=== PATIENT | male | born 1960 | race Caucasian/White ===

== ENCOUNTER 2017-06-08 09:01 | Day surgery (SDC) | payer MEDICAID ==
[~2017-06-08] VITALS: Ht 167.6 cm; Wt 79.8 kg
[~2017-06-08 09:01] MED LIST: PANT40TA4 PO; PROP10TA10 PO; VITAMIN B 1 PO
[2017-06-08 10:04] LABS: HEMATOCRIT 39.5 % (42.0-52.0); HEMOGLOBIN 13.5 g/dL (14.0-18.0)
[2017-06-08] MEDS ORDERED: LACTATED RINGERS 1,000 ML IV SCH (10:15)
[2017-06-08] MEDS ORDERED: SIMETHICONE 40 MG/0.6 ML 30ML ONE (11:21)
[2017-06-08] MEDS ORDERED: PROPOFOL 200MG/20ML VIAL IV ONE (11:23)
[2017-06-08] MEDS ORDERED: ONDANSETRON HCL 4MG/2ML VIAL ONE (11:38)
[2017-06-08] MEDS ORDERED: LIDOCAINE HCL/PF 1% 10 MG/ML 5ML VIAL ONE (11:38)
[2017-06-08] MEDS ORDERED: DEXAMETHASONE 4MG/ML 1ML VIAL ONE (11:38)
[2017-06-08] MEDS ORDERED: ONDANSETRON HCL 4MG/2ML VIAL IV PRN ×2 (11:45)
[2017-06-08] MEDS ORDERED: HYDROMORPHONE HCL/PF 2MG/ML CPJ IV PRN ×2 (11:45)
[2017-06-08] MEDS ORDERED: LABETALOL 5MG/ML SYR 20 MG/4 ML SYRINGE IV PRN ×2 (11:45)
[2017-06-08] MEDS ORDERED: MEPERIDINE HCL/PF 25MG/ML CPJ IV PRN ×2 (11:45)
[2017-06-08] MEDS ORDERED: FOLI-43 PO (12:13)
[2017-06-08] MEDS ORDERED: THIA100T75 PO (12:13)
[2017-06-08] MEDS ORDERED: OMEP40CA34 PO (12:13)
[2017-06-08] MEDS ORDERED: FERR325T6 PO (12:13)
== END 2017-06-08 13:00 | disposition home or self-care (01) ==
LOC: OR 09:01
PROVIDERS: ATTEND Internal Medicine Gastroenterology
DX: K31.89 Other diseases of stomach and duodenum (principal); K76.6 Portal hypertension; K70.30 Alcoholic cirrhosis of liver without ascites; K44.9 Diaphragmatic hernia without obstruction or gangrene; F10.10 Alcohol abuse, uncomplicated; K21.9 Gastro-esophageal reflux disease without esophagitis; D64.89 Other specified anemias; Z79.899 Other long term (current) drug therapy
CPT/HCPCS: 36415; 43235; 85014; 85018; J1100; J2405; J3490; J7120; J2704

== ENCOUNTER 2022-06-17 19:16 | Emergency (ER) | payer MEDICAID, OTHER ==
[~2022-06-17] VITALS: Ht 167.6 cm; Wt 78.6 kg
[~2022-06-17 19:16] MED LIST changes: +FERR325T6 PO; +FOLI-43 PO; +OMEP40CA20 PO; -PANT40TA4 PO; +THIA100T75 PO; -VITAMIN B 1 PO
[2022-06-17 19:30] VITALS: BP 137/68
[2022-06-17 20:29] LABS: HEMATOCRIT. 30.1 % (42.0-52.0); HEMOGLOBIN. 9.5 g/dL (14.0-18.0); MEAN CORPUSCULAR HEMOGLOBIN 23.7 pg (28.0-32.0); MEAN PLATELET VOLUME 8.5 fl (7.4-10.4); PLATELET 185 x1000/uL (130-400); RED BLOOD CELL COUNT 4.01 mill/uL (4.7-6.1); RED CELL DISTRIBUTION WIDTH 30.9 % (11.6-14.6)
[2022-06-17 20:34] LABS: CHLORIDE 111 mEq/L (98-107)
[2022-06-17] MEDS ORDERED: FAMOTIDINE 20MG/2ML VIAL IV STA (22:46)
[2022-06-17 22:51] LABS: PLATELET ESTIMATE NORMAL
[2022-06-17] MEDS ORDERED: ONDANSETRON HCL 4MG/2ML INJ IV ONE (23:00)
[2022-06-17] MEDS ORDERED: SODIUM CHLORIDE 0.9% 1,000 ML IV ONE (23:00)
[2022-06-17 23:16] LABS: CHLORIDE 111 mEq/L (98-107)
[2022-06-17 23:22] LABS: INR 1.1
[2022-06-17 23:24] LABS: BASOPHILS % 0.8 % (0.0-2.0); HEMATOCRIT. 32.6 % (42.0-52.0); HEMOGLOBIN. 10.2 g/dL (14.0-18.0); LYMPHOCYTES % 12.2 % (20.0-50.0); MEAN CORPUSCULAR HEMOGLOBIN 23.5 pg (28.0-32.0); MEAN PLATELET VOLUME 8.8 fl (7.4-10.4); MONOCYTES % 12.2 % (2.0-8.0); NEUTROPHILS % 74.8 % (40.0-76.0); PLATELET 199 x1000/uL (130-400); RED BLOOD CELL COUNT 4.34 mill/uL (4.7-6.1); RED CELL DISTRIBUTION WIDTH 30.5 % (11.6-14.6)
[2022-06-18 02:00] LABS: PLATELET ESTIMATE NORMAL
== END 2022-06-18 00:30 | disposition left against medical advice (07) ==
LOC: ER 19:16
DX: R10.9 Unspecified abdominal pain (principal); Z53.21 Procedure and treatment not carried out due to patient leaving prior to being seen by health care provider
CPT/HCPCS: 36415; 74176; 80053; 83690; 85025; 85610; 93005; 99281; J7030